=== PATIENT | female | born 1970 | race African-American/Black ===

== ENCOUNTER 2017-09-06 11:12 | Emergency (ER) | payer OTHER, SELFPAY ==
--- NOTE | 2017-09-06 11:58 | RAD ---
CHEST 1 VIEW: Date: 09/06/17 HISTORY: Hypertension. Dyspnea. FINDINGS: Cardiac silhouette is magnified and upper limits of normal in size. Pulmonary vasculature is unremark able. Mediastinum is midline. No lobar consolidation or evidence of pneumothorax. groundwater monitoring technician alessandro ds overlie the chest. IMPRESSION: Borderline cardiomegaly. POS: [facility]
[2017-09-06 12:01] LABS: #Basophils 0.1 thou/uL (0.0-0.2); #Eosinphils 0.2 thou/uL (0.0-0.7); #Lymphocytes 3.5 thou/uL (1.20-3.40); #Monocytes 0.6 thou/uL (0.11-0.59); #Neutrophils 4.3 thou/uL (1.40-6.50); %Basophils 1.2 % (0.0-1.0); %Lymphocytes 39.8 % (21.0-51.0); %Monocytes 7.1 % (0.0-10.0); Hemoglobin 10.9 g/dL (12.0-16.0); Mean Corpuscular HGB CONC 32.5 g/dL (32.0-36.0); Mean Corpuscular Hemoglobin 24.5 pg (27.0-31.0); Mean Corpuscular Volume 75.5 fL (78.0-98.0); Mean Platelet Volume 9.8 fL (7.4-10.4); Platelet Count 253 thou/uL (130-400); RBC Distribution Width 14.7 % (11.5-14.5); Red Blood Cell (RBC) Count 4.43 mill/uL (4.20-5.40); White Blood Cell (WBC) Count 8.7 thou/uL (4.8-10.8)
[2017-09-06 12:18] LABS: CKMB 2.2 ng/mL (0-6.6); Troponin I 0.011 ng/mL (< 0.028)
[2017-09-06 12:21] LABS: ALT (SGPT) 14 U/L (8-55); AST (SGOT) 14 U/L (5-34); Albumin 3.2 g/dL (3.5-5.0); Alkaline Phosphatase 98 U/L (40-150); Anion Gap 11 mmol/L (10-20); BUN (Urea Nitrogen) 18 mg/dL (7.0-18.7); Bilirubin, Total 0.3 mg/dL (0.2-1.2); Calc. Creatinine Clearance 0 mL/min (70-130); Calcium 9.4 mg/dL (7.8-10.44); Carbon Dioxide 25 mmol/L (22-29); Chloride 102 mmol/L (98-107); Estimated GFR-MDRD 66; Globulin 3.7 g/dL (2.4-3.5); Glucose 301 mg/dL (70-105); Potassium 4.7 mmol/L (3.5-5.1); Protein, Total 6.9 g/dL (6.0-8.3); Sodium 133 mmol/L (136-145)
[2017-09-06] MEDS ORDERED: cloNIDine 0.1 MG TAB ONE (12:44)
== END 2017-09-06 14:43 | disposition home or self-care (01) ==
LOC: ERS 11:12
DX: I11.0 Hypertensive heart disease with heart failure (principal); I50.9 Heart failure, unspecified; E11.40 Type 2 diabetes mellitus with diabetic neuropathy, unspecified; M19.90 Unspecified osteoarthritis, unspecified site; Z79.899 Other long term (current) drug therapy; Z79.84 Long term (current) use of oral hypoglycemic drugs
CPT/HCPCS: 36415; 36416; 71045; 80053; 82553; 83880; 84484; 85025; 93005

== ENCOUNTER 2018-05-24 13:15 | Outpatient (CLI) | payer BC ==
--- NOTE | 2018-05-24 14:01 | RAD ---
PA AND LATERAL VIEWS CHEST: HISTORY: Shortness of breath. FINDINGS: Comparison is made with the exam of 09/06/2017. The heart size is enlarged. There is continued elevation of the right hemidiaphragm. The lungs are expanded without focal areas of consolidation, pneumothoraces, heather pulmonary edema, or pleural effu sions. No acute osseous abnormalities are seen. IMPRESSION: No radiographic evidence of acute cardiopulmonary process. POS: [facility]
== END 2018-05-24 13:16 | disposition home or self-care (01) ==
LOC: RAD 13:15
PROVIDERS: ATTEND Family Medicine
DX: R05 Cough (principal)
CPT/HCPCS: 71046

== ENCOUNTER 2019-10-30 09:40 | Outpatient (CLI) | payer OTHER ==
--- NOTE | 2019-10-30 10:51 | RAD ---
EXAM: 3 views of the left shoulder HISTORY: Shoulder pain COMPARISON: None FINDINGS: There is no evidence of acute fracture or dislocation. No degenerative changes are present. No soft tissue swelling is seen. The visualized thorax is unremarkable. IMPRESSION: No evidence of acute osseous abnormality.
--- NOTE | 2019-10-30 12:17 | RAD ---
LEFT ANKLE 3 VIEWS: HISTORY: Left ankle pain. FINDINGS: Prominent vascular calcifications as well as some other soft tissue calcifications. Small calcaneal plantar enthesophyte. Small focal lucency in the superior aspect of the medial talar dome, possibly a small subchondral cyst. IMPRESSION: Bone demineralization. Vascular and other soft tissue calcifications. Possible small medial talar d ome subchondral cyst. No acute fracture or dislocation. POS: [facility]
--- NOTE | 2019-10-30 12:36 | RAD ---
LEFT HIP 2 VIEWS: HISTORY: Hip pain. FINDINGS: Femoral head contour is normal. No evidence of fracture. No significant degenerative change. Left hemipelvis unremarkable. IMPRESSION: No acute finding. POS: [facility]
== END 2019-10-30 09:41 | disposition home or self-care (01) ==
LOC: RAD 09:40
PROVIDERS: ATTEND Family Medicine
DX: M25.522 Pain in left elbow (principal); M25.572 Pain in left ankle and joints of left foot; M25.512 Pain in left shoulder; M81.0 Age-related osteoporosis without current pathological fracture; I70.90 Unspecified atherosclerosis

== ENCOUNTER 2020-03-26 10:32 | Day surgery (SDC) | payer SELFPAY ==
[~2020-03-26 10:32] MED LIST: DEXTROSE 5% IVPB SCH; FLUOROURACIL IVPB SCH; Ferumoxytol (NON ERSD) 510 MG in Sodium Chloride 0.9% 250 ML 150 ML IVPB SCH; LEUCOVORIN CALCIUM IVPB SCH; OXALIPLATIN IVPB SCH; PALONOSETRON HCL 0.05 MG/ML 5 ML VIAL IVP SCH; Palonosetron HCl 0.25 MG in Sodium Chloride 0.9% 50 ML IVPB SCH; SODIUM CHLORIDE 0.9% IVPB SCH; WATER IVPB SCH
[2020-03-26] MEDS ORDERED: Sodium Chloride 0.9% 20 ML ONE (10:37)
== END 2020-03-26 16:20 | disposition home or self-care (01) ==
LOC: ONC/OP 10:32
PROVIDERS: ATTEND Internal Medicine Hematology & Oncology
DX: Z51.11 Encounter for antineoplastic chemotherapy (principal); C18.0 Malignant neoplasm of cecum
CPT/HCPCS: 96367; 96375; 96413; 96415; 96416; 96417; J0640; J1100; J2469; J7070; J9190; J9263

== ENCOUNTER 2020-04-02 10:42 | Day surgery (SDC) | payer MEDICAID, SELFPAY ==
[~2020-04-02 10:42] MED LIST changes: -DEXTROSE 5% IVPB SCH; -FLUOROURACIL IVPB SCH; +Ferumoxytol (ERSD) 510 MG in Sodium Chloride 0.9% 150 ML IVPB SCH; -Ferumoxytol (NON ERSD) 510 MG in Sodium Chloride 0.9% 250 ML 150 ML IVPB SCH; -LEUCOVORIN CALCIUM IVPB SCH; -OXALIPLATIN IVPB SCH; -PALONOSETRON HCL 0.05 MG/ML 5 ML VIAL IVP SCH; -Palonosetron HCl 0.25 MG in Sodium Chloride 0.9% 50 ML IVPB SCH; -SODIUM CHLORIDE 0.9% IVPB SCH; -WATER IVPB SCH
[2020-04-02] MEDS ORDERED: Sodium Chloride 0.9% 20 ML ONE (11:11)
[2020-04-02] MEDS ORDERED: Sodium Chloride 0.9% 1,000 ML IV SCH (12:00)
[2020-04-02] MEDS ORDERED: Dexamethasone Sod Phosphate 10 MG, Ondansetron 2MG/ML MDV 10 MG in Sodium Chloride 0.9%... IVPB SCH (12:00)
== END 2020-04-02 13:01 | disposition home or self-care (01) ==
LOC: ONC/OP 10:42
PROVIDERS: ATTEND Internal Medicine Hematology & Oncology
DX: D50.0 Iron deficiency anemia secondary to blood loss (chronic) (principal); C18.0 Malignant neoplasm of cecum
CPT/HCPCS: 96365; J1100; J1642; J2405